=== PATIENT | female | born 1990 | race Caucasian/White ===

== ENCOUNTER → 2021-11-01 12:38 | Outpatient (CLI) | payer BC, SELFPAY ==
--- NOTE | ~2021-11-01 | US_ITS ---
EXAMINATION: US OB transvaginal DATE: 11/01/2021 13:10 INDICATION: Uncertain dates of TECHNIQUE: Real-time pelvic ultrasound utilizing a transvaginal probe was performed. The interpreting radiologist was not present for the study. COMPARISON: None. FINDINGS: The uterus measures 8.3 x 5.6 x 5.9 cm. There is an intrauterine gestational sac. A yolk sac and fet al pole are identified. The crown rump length measures 1.3 cm, which correlates with an estimated ges tational age of 7 weeks and 3 days. heart motion is identified measuring 161 beats per minute ( bpm) by M-mode Doppler. The right ovary measures 2.3 x 2.5 x 3.7 cm. There are a few anechoic cysts in the right ovary, the l argest measuring 2.3 cm. The left ovary measures 2.5 x 2.1 x 1.8 cm. There is no free fluid in the pe lvis. IMPRESSION: 1. Single living fetus with heart of 161 bpm. 2. Gestational age by ultrasound of 7 weeks 3 day(s) +/- 5 day(s) with ultrasound estimated date of delivery (JOSE) of 06/17/2022. Reviewed, dictated and finalized at location A. [employer] REPRESENTATIVE IMPRESSION: 1. Single living fetus with heart of 161 bpm. 2. Gestational age by ultrasound of 7 weeks 3 day(s) +/- 5 day(s) with ultraso und estimated date of delivery (JOSE) of 06/17/2022.
== END ==
PROVIDERS: Visit Provider Obstetrics & Gynecology Gynecology
DX: Z36.9 Encounter for antenatal screening, unspecified (principal); Z3A.01 Less than 8 weeks gestation of pregnancy
CPT/HCPCS: 76817

== ENCOUNTER → 2022-01-27 15:10 | Outpatient (CLI) | payer BC, SELFPAY ==
--- NOTE | ~2022-01-27 | US_ITS ---
EXAMINATION: US OB /maternal detail DATE: 01/27/2022 16:10 INDICATION: Encounter for screening. TECHNIQUE: Real-time ultrasound of the pelvis was performed. COMPARISON: Ultrasound 11/01/2021 FINDINGS: There is a single living fetus in breech presentation. The placenta is anterior, 1.1 cm from the cer vix. heart rate is 132 beats per minute (bpm). The amniotic fluid volume is subjectively normal . The following biometric data were obtained: Biparietal diameter (BPD): 4.8 cm; head circumference (HC): 17.9 cm; abdominal circumference (AC): 15 .5 cm; femur length (FL): 3.2 cm. These measurements are concordant. Estimated weight is 344 g +/- 52 g, which correlates with the 71st percentile when 06/17/22 is u sed as estimated date of delivery. As single measurements, these parameters are each equal to the following estimated gestational ages w ith ranges of +/- 2 standard deviations: BPD: 20 weeks 3 days (18 weeks 5 days - 22 weeks 1 days). HC: 20 weeks 2 days (18 weeks 6 days - 21 weeks 6 days). AC: 20 weeks 5 days (18 weeks 5 days - 22 weeks 5 days). FL: 19 weeks 6 days (18 weeks 0 days - 21 weeks 4 days). estimated gestational age based solely on measurements from this exam is 20 weeks 2 days +/- 1 weeks 3 days. The cerebral ventricles, cerebellum, cisterna magna, nuchal fold, lip, and visualized portions of the spine are normal. The heart is normal. The diaphragm, stomach, kidneys, and bladder are normal. Ther e are two umbilical arteries to yield a 3-vessel cord. The cord insertion is normal. IMPRESSION: 1. Single living fetus in breech presentation. 2. Estimated weight is 344 g +/- 52 g, which correlates with the 71st percentile when 06/17/22 is used as estimated date of delivery. This date was set by ultrasound on 11/01/2021. 3. Normal anatomic survey. 4. Low lying placenta. Reviewed, dictated and finalized at location A. IMPRESSION: 1. Single living fetus in breech presentation. 2. Estimated weight is 344 g +/- 52 g, which correlates with the 71st rcentile when 06/17/22 is used as estimated date of delivery. This date was set by ultrasound on 11/01/2021. 3. Normal anatomic survey. 4. Low lying placenta.
== END ==
PROVIDERS: PCP Obstetrics & Gynecology Gynecology; Visit Provider Obstetrics & Gynecology Gynecology
DX: Z34.92 Encounter for supervision of normal pregnancy, unspecified, second trimester (principal); Z3A.20 20 weeks gestation of pregnancy
CPT/HCPCS: 76805

== ENCOUNTER → 2022-02-28 12:52 | Outpatient (CLI) | payer BC, SELFPAY ==
--- NOTE | ~2022-02-28 | US_ITS ---
EXAMINATION: US OB limited DATE: 02/28/2022 13:08 INDICATION: Low-lying placenta TECHNIQUE: Real-time ultrasound of the pelvis was performed. The interpreting radiologist was not pre sent for the study. COMPARISON: 01/27/2022 FINDINGS: There is a single living fetus in vertex presentation. The placenta is anterior. The caudal margin i s approximately 3-4 cm from the region of the internal cervical os which is obscured by refraction ar tifact associated with the vertex of the skull. heart rate is 130 beats per minute (bpm). The amniotic fluid volume is subjectively normal. IMPRESSION: 1. Single living fetus in vertex presentation with heart rate of 130 bpm. 2. Anterior placenta with caudal margin approximately 3-4 cm from the expected region of the internal cervical os which is not clearly visualized due to transabdominal imaging and vertex position of the skull. Could consider transvaginal imaging for more definitive determination as clinically ind icated. Reviewed, dictated and finalized at location A. IMPRESSION: 1. Single living fetus in vertex presentation with heart rate of 130 bpm . 2. Anterior placenta with caudal margin approximately 3-4 cm from the expected region of the internal cervical os which is not clearly visualized due to trans abdominal imaging and vertex position of the skull. Could consider transv aginal imaging for more definitive determination as clinically indicated.
== END ==
PROVIDERS: PCP Obstetrics & Gynecology Gynecology; Visit Provider Obstetrics & Gynecology Gynecology
DX: O44.42 Low lying placenta NOS or without hemorrhage, second trimester (principal); Z3A.00 Weeks of gestation of pregnancy not specified
CPT/HCPCS: 76815

== ENCOUNTER → 2022-03-15 12:41 | Outpatient (CLI) | payer BC, SELFPAY ==
--- NOTE | ~2022-03-15 | US_ITS ---
EXAMINATION: US OB transvaginal DATE: 03/15/2022 13:05 INDICATION: Low-lying placenta, second trimester TECHNIQUE: Real-time pelvic transvaginal ultrasound was performed. COMPARISON: 02/28/2022 FINDINGS: There is a single fetus in vertex presentation. The placenta is anterior and 4.5 cm from th e internal cervical os. cardiac motion is not assessed due to transvaginal only examination. IMPRESSION: 1. Anterior placenta approximately 4.5 cm from the internal cervical os. Reviewed, dictated and finalized at location A.
== END ==
PROVIDERS: PCP Obstetrics & Gynecology Gynecology; Visit Provider Obstetrics & Gynecology Gynecology
DX: O44.40 Low lying placenta NOS or without hemorrhage, unspecified trimester (principal); Z3A.00 Weeks of gestation of pregnancy not specified
CPT/HCPCS: 76817

== ENCOUNTER → 2022-05-23 14:45 | Outpatient (CLI) | payer BC, SELFPAY ==
--- NOTE | ~2022-05-23 | US_ITS ---
EXAMINATION: US OB follow up DATE: 05/23/2022 15:10 INDICATION: Size less than expected for estimated gestational age. Assess growth. TECHNIQUE: Real-time ultrasound of the pelvis was performed. The interpreting radiologist was not pre sent for the study. COMPARISON: 03/15/2022 FINDINGS: There is a single living fetus in vertex presentation. The placenta is anterior fundal and not low-l yara. heart rate is 136 beats per minute (bpm). The amniotic fluid index is 9.6 cm, which is n ormal (5th%-95%: 7.7-24.9 cm at T6 weeks estimated gestational age). The following biometric data were obtained: BPD: 9.1 cm -> 36 weeks 6 days Head circumference: 3.23 cm -> 36 weeks 4 days Abdominal circumference: 32.0 cm -> 36 weeks 0 days Femur length: 6.9 cm -> 35 weeks 2 days These measurements are concordant. Head circumference to abdominal circumference ratio: 1.01 (normal range 0.92-1.08). Estimated weight: 2802 g (+/-) 420 g or 6 lbs. 3 oz. (+/-) 15 oz. IMPRESSION: 1. Single living fetus in vertex presentation with heart rate of 136 bpm. 2. Normal amniotic fluid index of 9.6 cm. 3. Estimated weight is 39th percentile by Hadlock criteria when 06/17/2022 is used as the estima alysa date of delivery (JOSE). On study performed 01/27/2022, the estimated weight was 71st percent ile utilizing the same JOSE. Please correlate with clinical information or earlier ultrasounds for mos t accurate JOSE. Reviewed, dictated and finalized at location A. IMPRESSION: 1. Single living fetus in vertex presentation with heart rate of 136 bpm. 2. Normal amniotic fluid index of 9.6 cm. 3. Estimated weight is 39th percentile by Hadlock criteria when 06/17/2022 is used as the estimated date of delivery (JOSE). On study performed 01/27/2022, the estimated weight was 71st percentile utilizing the same JOSE. Please correlate with clinical information or earlier ultrasounds for most accurate ED D.
== END ==
PROVIDERS: PCP Obstetrics & Gynecology Gynecology; Visit Provider Advanced Practice Midwife
DX: O36.5930 Maternal care for other known or suspected poor fetal growth, third trimester, not applicable or unspecified (principal); Z3A.00 Weeks of gestation of pregnancy not specified
CPT/HCPCS: 76816

== ENCOUNTER 2022-05-29 13:42 | Outpatient (RCR) | payer BC, SELFPAY ==
[2022-04-14 12:28] VITALS: BP 108/63; PULSE 95
[2022-05-29 14:15] VITALS: BP 113/72; PULSE 91
== END 2022-06-14 10:15 | disposition home or self-care (01) ==
LOC: ANHOBOP 13:42
PROVIDERS: Visit Provider Obstetrics & Gynecology Gynecology
DX: O36.8130 Decreased fetal movements, third trimester, not applicable or unspecified (principal); Z3A.30 30 weeks gestation of pregnancy
CPT/HCPCS: 59025

== ENCOUNTER 2022-06-05 08:09 | Inpatient (IN) | payer BC, SELFPAY ==
[2022-06-05] VITALS (150 sets, daily range): BP systolic 98–144; BP diastolic 49–102; PULSE 75–142; TEMP 36.2–36.5; O2SAT 95–100; BMI 27.6
[2022-06-05] MEDS: fentaNYL CITRATE INJ (*CRX) 100 MCG/2 ML VIAL 50 MCG IV PUSH ×2 (13:04→14:49)
--- NOTE | 2022-06-05 14:48 | WPDOBADMIT ---
Obstetrics - Admit Note Admission Note: record reviewed. No pertinent additions to the history and/or any subsequent changes in the physical findings that are not consistent with the expected course of the were found. Additions to the history and/or subsequent changes in the physical findings follow. Here in labor. Initially, 3 cm. Now 580/-1 anterior. AROM with clear fluid. FHTs category I. Expectant management. Plan delivery with Chana Tan. Patient report given.
[2022-06-05] MEDS: LACTATED RINGERS 1,000 ML 125 ML IV CONT ×3 (15:00→23:17)
[2022-06-05] MEDS: CLINDAMYCIN 900 MG/D5W 50 ML 900 MG/50 ML PIGGYBACK 50 MG IVPB ×2 (15:00→23:06)
[2022-06-05 15:01] LABS: Basophils Absolute Auto 0.1 K/mm3 (0.0-0.1); Basophils Percent Auto 0.5 % (0.2-1.2); Eosinophils Percent Auto 0.4 % (0-4.4); Hematocrit 36.8 % (37.0-47.0); Hemoglobin 11.9 g/dL (12.0-15.0); Immature Granulocyte Absolute 0.15 K/mm3 (0.00-0.031); Immature Granulocyte Percent A 1.5 % (0-0.5); Lymphocytes Absolute Auto 1.16 K/mm3 (0.9-3.2); Lymphocytes Percent Auto 11.2 % (18.3-44.2); Mean Corpuscular HGB Conc 32.3 g/dl (32-36); Mean Corpuscular Hemoglobin 29.8 pg (26-34); Mean Corpuscular Volume 92.2 fl (80-100); Mean Platelet Volume 10.3 fl (7.4-10.4); Monocytes Absolute Auto 0.7 K/mm3 (0.1-0.6); Monocytes Percent Auto 7.2 % (2.6-8.5); Neutrophils Absolute Auto 8.2 K/mm3 (1.3-6.7); Neutrophils Percent Auto 79.2 % (45.5-73.1); Platelet Count Result 312 k/mm3 (150-375); Red Blood Count 3.99 M/mm3 (4.2-5.4); Red Cell Distribution Width 17.7 % (11.5-14.5); White Blood Count 10.3 K/mm3 (4.5-10.0)
--- NOTE | 2022-06-05 15:03 | LDADM ---
This patient, Sara Gutierrez, was admitted to Labor/Delivery/Recovery 105 on 06/05/22 at 08:09. Plans for labor, pain management and were discussed with patient. Patient/family oriented to hospital policies and general routines including ID bracelet, bed and alarms, visiting hours, pain management, procedures, bathroom and other care routines, personal items, smoking policy, room service/diet and guest tray routines, security routines, and visiting hours. Patient/Family are encouraged to report perceived risks to care and to ask questions if they do not understand what they are told or what they should do. See OBIX for further documentation.
--- NOTE | 2022-06-05 15:16 | WPDANESEPP ---
Anes - Eval Pre Procedure Procedure: labor epidural Date/Time: 06/05/22 15:16 Preop Diagnosis: labor pain Pre Op Diagnosis: Contractions Patient Data Age: 31 Gender: F Height: 1.68 m Weight: 77.5 kg Last Vital Signs Pulse 80 06/05/22 15:01 BP 144/90 H 06/05/22 15:01 O2 Del Method Room Air 06/05/22 15:00 Allergies Allergy/AdvReac Type Severity Reaction Status Date / Time amoxicillin Allergy Unknown Vomiting Verified 05/19/22 15:19 aripiprazole AdvReac Fatigued Verified 05/19/22 15:19 Home Medications Medication Instructions Recorded Confirmed Type fluticasone propionate 50 2 spray intranasal DAILY #9.9 mL 07/24/19 08/29/21 Rx mcg/actuation nasal spray,suspension (Flonase Allergy Relief) fluoxetine 20 mg capsule 20 mg PO TID #90 caps 11/24/19 08/29/21 Rx buspirone 5 mg tablet 5 mg PO TID 06/22/20 08/29/21 History cholecalciferol (vitamin D3) 1,250 1,250 mcg PO WEEKLY 06/22/20 08/29/21 History mcg (50,000 unit) capsule (D3-50 Cholecalciferol) ferrous gluconate 270 mg (27 mg 270 mg PO DAILY 06/22/20 08/29/21 History iron) tablet (Fergon) ondansetron 4 mg disintegrating 4 mg PO Q8H PRN nausea and 08/26/21 08/26/21 Rx tablet vomiting #30 tabs Laboratory Tests 06/05/22 06/05/22 14:57 14:57 WBC 10.3 K/mm3 H K/mm3 (4.5-10.0) RBC 3.99 M/mm3 L M/mm3 (4.2-5.4) Hgb 11.9 g/dL L g/dL (12.0-15.0) Hct 36.8 % L % (37.0-47.0) MCV 92.2 fl fl (80-100) MCH 29.8 pg pg (26-34) MCHC 32.3 g/dl g/dl (32-36) RDW 17.7 % H % (11.5-14.5) Plt Count 312 k/mm3 k/mm3 (150-375) MPV 10.3 fl fl (7.4-10.4) Immature Gran % (Auto) 1.5 % H % (0-0.5) Neut % (Auto) 79.2 % H % (45.5-73.1) Lymph % (Auto) 11.2 % L % (18.3-44.2) [place] % (Auto) 7.2 % % (2.6-8.5) Eos % (Auto) 0.4 % % (0-4.4) Baso % (Auto) 0.5 % % (0.2-1.2) Lymph # (Auto) 1.16 K/mm3 K/mm3 (0.9-3.2) [place] # (Auto) 0.7 K/mm3 H K/mm3 (0.1-0.6) Eos # (Auto) 0.0 K/mm3 K/mm3 (0-0.3) Baso # (Auto) 0.1 K/mm3 K/mm3 (0.0-0.1) Abs Immat Gran (auto) 0.15 K/mm3 H K/mm3 (0.00-0.031) Absolute Neuts (auto) 8.2 K/mm3 H K/mm3 (1.3-6.7) Absolute Nucleated RBC 0.0 K/mm3 K/mm3 (0.0-0.012) Nucleated RBC % 0.0 % % (0.0-0.2) RPR Pending Patient hx anesthesia problems: none Family hx anesthesia problems: none Results Review: All pre-operative results and documents have been reviewed as part of the pre-operative evaluation. [facility] Past Medical History Medical History Anxiety Depression Insomnia Surgical History Surgical History No significant past surgical history Family History Family History Father Family history of thyroid disease Carcinoma of colon Mother Family history of thyroid disease Depression Family history of bipolar disorder Sibling Family history of thyroid disease Depression Grandparent Carcinoma of colon Family history of lung cancer Family history of malignant neoplasm of esophagus Other Family history of mental disorder Family history of suicide Social History Social History Smoking status: Never smoker Alcohol intake: current Substance use: never Spiritual care concerns: No Exam Day of Procedure 06/05/22 15:16
[2022-06-05] MEDS: ONDANSETRON INJ 4 MG/2 ML VIAL IV PUSH ×2 (17:02→23:17)
--- NOTE | 2022-06-05 17:26 | PM.OBPNLAB ---
Pain Control Date/time seen: 06/05/22 17:26 Pain control: epidural Pelvic Exam Dilation (cm): 5 Effacement (%): 90 station: -1 Amniotic membrane status: Ruptured Contractions Monitor mode: External Contraction frequency: 4 Contraction pattern: Regular Contraction phase: Contraction Contraction intensity: Moderate Status status: Category l Assessment and Plan Plan: begin patient augmentation Comments: Discussed plan of care with Sara and her partner. SVE unchanged. Ctx q 4 min. Recommended IUPC placement and augmentation of labor if MVUs inadequate. Anticipate vaginal .
[2022-06-05] MEDS: OXYTOCIN 30 UNITS/NS 500 ML 30 UNITS/500 ML BAG IV CONT (18:51)
[2022-06-06] VITALS (126 sets, daily range): BP systolic 110–132; BP diastolic 68–103; PULSE 25–132; RESP 16–18; TEMP 36.2–36.9; O2SAT 79–100
[2022-06-06] MEDS: ACETAMINOPHEN 325 MG TABLET 650 MG PO ×4 (00:09→22:47)
[2022-06-06] MEDS: LACTATED RINGERS 1,000 ML 125 ML IV CONT (03:23)
[2022-06-06] MEDS: ONDANSETRON INJ 4 MG/2 ML VIAL IV PUSH (04:56)
--- NOTE | 2022-06-06 07:14 | P.PCNOB_ITS ---
OB - Delivery Note Procedure Delivery date: 06/06/22 Events: Positive Group B Strep (GBS) Induction method: None Delivery augmentation: Rupture of Membranes and Pitocin Delivery monitor: External FHT, External Uterine and Internal Uterine Route of delivery: Episiotomy description: None Laceration Description: Vaginal (1st degree) and Superficial Delivery repair: vicryl Specimen: Yes Quantitative Blood Loss (ml): 150 Anesthesia type: Epidural Disposition: Floor Narrative: Called for delivery at . CNM arrived and pt pushing with some contractions. Intermittent variable decerlerations. Pt repositioned frequently and pushed with contractions. She made fair progress to and then pushed very well. There was a compound presentation with the right arm and hand. Then had good restitution and the remainder of the body was delivered easily. The infant was placed on the maternal abdomen and dried and simulated. After one minute of life, the cord was doubly clamped and cut. [place] Baby Date of : 06/06/22 Time of : 06:50 Weeks of gestation at delivery: 38 gender: Female Weight (pounds): 6 Weight (ounces): 8 presentation: compound (JACE, compound presentation of the right arm, hand) position: Left Occiput Anterior Placenta delivery description: Spontaneous Cord Vessel Description: 3 Vessels score one minute: 6 score five minutes: 8
--- NOTE | 2022-06-06 07:14 | PM.OBDSVD ---
DS: Admitting Diagnosis Discharge Date 06/08/22 Admitting Diagnosis IUP at 38 2/7 weeks Spontaneous Labor GBS+ [place]im[place] DS: Discharge Diagnosis Discharge Diagnosis (1) (normal spontaneous vaginal delivery): Code(s): O80 - Encounter for full-term uncomplicated delivery Status: Acute OB - DS: Summary Hospital Course Hospital Course: uncomplicated OB Procedures : NST and Ultrasound OB Procedures Intrapartum: Spontaneous Vag Delivery OB Procedures: : None Peripartum Data Delivery Method: Natural Vaginal Laceration Description: Vaginal - 1st Degree and Superficial Episiotomy description: None complications: none Status at Discharge Overall status at discharge: patient is progressing back to baseline Time Spent with Patient Time attestation: Total time spent providing and/or coordinating discharge services: DS: Data Data Completed and Pending Labs on day of discharge: Labs from last 24 hours 06/05/22 06/05/22 06/05/22 14:57 14:57 14:57 WBC 10.3 H RBC 3.99 L Hgb 11.9 L Hct 36.8 L MCV 92.2 MCH 29.8 MCHC 32.3 RDW 17.7 H Plt Count 312 MPV 10.3 Immature Gran % (Auto) 1.5 H Neut % (Auto) 79.2 H Lymph % (Auto) 11.2 L [place] % (Auto) 7.2 Eos % (Auto) 0.4 Baso % (Auto) 0.5 Lymph # (Auto) 1.16 [place] # (Auto) 0.7 H Eos # (Auto) 0.0 Baso # (Auto) 0.1 Abs Immat Gran (auto) 0.15 H Absolute Neuts (auto) 8.2 H Absolute Nucleated RBC 0.0 Nucleated RBC % 0.0 RPR Pending Blood Type A Positive Antibody Screen Negative Discharge Plan Discharge Attending physician on discharge: Maddy Blanton Consulting providers: Chana Tan ; Felisa Sanz ; Christina Ramsay Discharging Clinician: Maddy Blanton Anticipated Discharge Date/Time: 06/08/22 09:14 Patient Disposition: Home, Self-Care Activity: may shower Diet: as tolerated and regular Discharge Instructions: Education: Mom and Baby Guide Given to: Mother Follow-Up: Call your delivering provider's office for an appointment to be seen in: 6 Weeks Mom and baby should come to the [facility] for the follow-up appointment. Appointment Date/Time: June 10, 2022 at 10:00 am What to expect at your follow-up visit: Blood Pressure Check Physical Assessment Call [phone] if you are unable to keep your appointment time. BREAST CARE: * Wear a snug supportive bra. * For engorgement discomfort: Breast Feeding: * Apply warm moist washcloths * Express milk as needed to relieve engorgement * Wear loose clothing Bottle Feeding: * May apply ice packs * For sore nipples: * Identify correct latch-on * Apply warm moist washcloths before and after nursing * Air dry nipples after nursing * May apply Lansinoh cream to nipples PERINEAL CARE: * Until bleeding stops, use your dawit bottle after urinating * Change your pad frequently throughout the day * You may take sitz baths several times a day (fill your bathtub with warm water and soak for 20 minutes.) Do NOT bathe in the water * No tub baths until seen by your physician - You may shower ACTIVITY: * Rest as much as possible. * Do not exercise or lift anything heavier than your baby (such as laundry or other children.) * Avoid stairs or driving as much as possible. * Do not put anything into the vagina. No douching, tampons, or sexual activity until seen by physician. NOTIFY PHYSICIAN IF YOU HAVE ANY QUESTIONS OR IF ANY OF THE FOLLOWING SYMPTOMS OCCUR: * If your episiotomy or incision becomes red, swollen, or more painful than what you have experienced in the hospital. * If your vaginal bleeding becomes foul smelling. * If your vaginal bleeding becomes more heavy than a period or if your bleeding changes from pink to bright red. However, you may pass an occas
[2022-06-06] MEDS: OXYTOCIN 30 UNITS/NS 500 ML 30 UNITS/500 ML BAG 125 UNITS IV CONT (07:20)
[2022-06-06] MEDS: WITCH HAZEL 40 PADS 1 PAD TOPICAL (09:24)
[2022-06-06] MEDS: BENZOCAINE 20% AER SPR (*SP) 56 GM CAN 1 SPRAY TOPICAL (09:24)
[2022-06-06] MEDS: IBUPROFEN 600 MG TABLET PO ×3 (10:20→22:46)
--- NOTE | 2022-06-06 10:27 | PC.NURSE ---
Patient transferred to post room #283 via wheelchair. Support person present. Oriented to unit, room, information board, rooming in, admission packet and security measures. Patient verbalizes understanding.
[2022-06-06] MEDS: LEVOTHYROXINE SODIUM 25 MCG TABLET PO (10:36)
[2022-06-06] MEDS: FLUoxetine HCL 20 MG CAPSULE 60 MG PO (10:37)
[2022-06-06] MEDS: busPIRone HCL 10 MG TABLET PO (10:37)
[2022-06-06 10:39] LABS: Rapid Plasma Reagin Non-Reactive (NonReactive)
--- NOTE | 2022-06-06 15:54 | PC.NURSE ---
1921-0822 Introductions were made, then consulted with patient to assess needs related to . Mother led the conversation with her?plans to feed?her infant and the?experience so far while a visitor holds . Resources provided for inpatient and outpatient services using a resource guide and mom/baby guide. Mother voiced understanding of information and requested assistance. Mother works well with her infant with encouragement and education. Encouraged understanding of the benefits of skin to skin (unwrapping and placing vertically on her chest), responsive feeding and how to watch for early feeding signs, frequency of feeding on demand about every 8-12 times in 24 hours (every 2-3 hours), milk production, using clean hands learning hand expression and finger feeding her the first milk, signs of adequate intake/output and how to record on the feeding sheet. Infant is sleepy and reluctant to breastfeed at this time. 1.5 mls was syringe fed to while sucking on father of baby's finger. Small amounts of colostrum syringe fed to to reward infant for sucking efforts. Resources used to facilitate learning were used with the tool and mom and baby guide. Mother voiced understanding of responsive feedings, stimulating with skin to skin, hand expressed colostrum, massage touch, talking to infant to encourage if it has been 2 -3 hours since the start of the last , to call if infant does not latch or there is discomfort with . Infant will be held by grandma while the parents eat lunch. Skin to skin encouraged, intake/output reviewed using the pie demonstration, parents questions answered and voiced calling for assistance if infant doesn't wake to eat every 2-3 hours from the start of a feeding to the start of a feeding, if there's discomfort with , or if they have concerns, questions, or need assistance with latching . Reported to the primary RN.
[2022-06-06] MEDS: diphenhydrAMINE HCl CAP 25 MG CAPSULE (23:00)
[2022-06-07 04:15] VITALS: BP 109/71; PULSE 86; RESP 16; TEMP 36
[2022-06-07] MEDS: IBUPROFEN 600 MG TABLET PO ×2 (04:23→15:55)
[2022-06-07] MEDS: ACETAMINOPHEN 325 MG TABLET 650 MG PO (04:24)
[2022-06-07 05:11] LABS: Hematocrit 32.4 % (37.0-47.0); Hemoglobin 10.2 g/dL (12.0-15.0)
--- NOTE | 2022-06-07 06:48 | P.PNOB_ITS ---
OB - PN: Subj Subjective Date/time seen: 06/07/22 06:30 Patient comments: other (vaginal pain) [place] baby status: doing well and other (attempting to breastfeed, supplementing with formula. ) [place] feeding status: breast and bottle feeding OB - PN: Obj Data Labs CBC & Chem 7: 06/07/22 04:20 Labs: Laboratory Results - last 24 hr 06/05/22 06/07/22 14:57 04:20 Hgb 10.2 L Hct 32.4 L RPR Non-reactive OB - PN A/P Plan day: 1 Plan: routine care Time Spent With Patient Time: Total time spent is greater than 50% in coordination of care (as documented) at patient's floor/unit and/or counseling patient: Review of Systems Review of Systems: All systems reviewed & are unremarkable except as noted in HPI and below Exam Narrative: Alert and oriented. Mood is pleasant and cooperative. Urinating without difficulty. Denies passing any large clots. Perineum with minimal edema. Const: General: no acute distress Orientation/consciousness: patient oriented x3 Limitations: no limitations Resp: Effort & Inspection: normal respiratory effort Auscultation: clear to auscultation bilaterally Cardio: Rate: regular rate GI: Inspection: normal to inspection Neuro: General: patient oriented x3 Extrem: General: normal to inspection Psych: Appearance: grossly normal Mental Status: mental status grossly normal Affect: normal affect Thought process: Normal thought process present
[2022-06-07 07:57] VITALS: BP 122/86; PULSE 102; RESP 16; TEMP 37.1; O2SAT 98
[2022-06-07] MEDS: HYDROcodone/acetaminophen (*CRX) 5-325 MG TABLET 1 TAB PO ×3 (09:03→20:54)
[2022-06-07] MEDS: FLUoxetine HCL 20 MG CAPSULE 60 MG PO (09:04)
[2022-06-07] MEDS: busPIRone HCL 10 MG TABLET PO (09:04)
[2022-06-07] MEDS: DOCUSATE SODIUM 100 MG CAPSULE PO ×2 (09:04→15:55)
[2022-06-07] MEDS: LEVOTHYROXINE SODIUM 25 MCG TABLET PO (09:04)
--- NOTE | 2022-06-07 09:08 | WPDANLDPN2 ---
Anes-Prog Note L&D Date/Time: 06/07/22 09:08 Comfortable throughout: labor Neuraxial method: epidural Epidural/Spinal procedure site: clean & non-tender Neuro status: Neuro function grossly intact. Cardiovascular status: normal Respiratory status: normal Airway patency: baseline Mental status: baseline Post-Op hydration status: normal Vital Signs: Last Vital Signs Temp 98.7 F 06/07/22 07:57 Pulse 102 H 06/07/22 07:57 Resp 16 06/07/22 07:57 BP 122/86 06/07/22 07:57 Pulse Ox 98 06/07/22 07:57 O2 Del Method Room Air 06/05/22 15:00 Pain score (VAS): 4 I/O: Intake & Output 06/06/22 06/07/22 06/07/22 23:59 07:59 15:59 Intake Total 240 Balance 240 Post-procedural complaints: none Patient feedback: Patient satisfied with anesthetic care. pt verbalized good relief throughout laboring process. states experienced intense pain once pushing. verbalized some relief after RN used bolus button but still had intense pain with delivery.
--- NOTE | 2022-06-07 16:08 | PC.NURSE ---
[id number] RN entered the room and mother had just finished bottle feeding her for a second time this morning. Father of baby states that he believes RN has equipped them with good tips and techniques to encourage and they have attempted them all without calling for assistance, then when they could not get to wake to feed they fed the baby 1 oz of formula that had been given to them prior to this dayshift by primary RN. Reviewed milk production, pumping or 8-12 times in 24 hours 1-2 times at night, signs of adequate intake/output (reviewed pie demonstration) and how to record on the feeding sheet. Parents voiced understanding of responsive feedings, stimulating with skin to skin, hand expressed colostrum, massage touch, talking to to encourage if it has been 2 -3 hours since the start of the last , to call if infant does not latch, difficulty waking infant to breastfeed or there is discomfort with as a visitor came in the room. Reported to the primary RN.
[2022-06-07 20:15] VITALS: BP 121/88; PULSE 88; RESP 18; TEMP 36.6; O2SAT 99
[2022-06-07] MEDS: MULTIVIT/MIN/PREN/FOL AC/IRON TABLET 1 TAB PO (20:29)
[2022-06-08] MEDS: IBUPROFEN 600 MG TABLET PO (00:51)
[2022-06-08] MEDS: HYDROcodone/acetaminophen (*CRX) 5-325 MG TABLET 1 TAB PO ×3 (00:52→10:01)
--- NOTE | 2022-06-08 07:31 | P.PNOB_ITS ---
OB - PN: Subj Subjective Date/time seen: 06/08/22 07:31 Patient comments: no complaints and pain well controlled baby status: doing well [place] feeding status: breast and bottle feeding OB - PN: Obj Data Labs CBC & Chem 7: 06/07/22 04:20 OB - PN A/P Plan day: 2 Plan: routine care, discharge home, follow up 6 weeks and other (plans micronor) Time Spent With Patient Time: Total time spent is greater than 50% in coordination of care (as documented) at patient's floor/unit and/or counseling patient: Exam : Bimanual exam- vagina & uterus: other (Uterus firm, nt @U)
[2022-06-08 08:35] VITALS: BP 129/90; PULSE 86; RESP 18; TEMP 36.3; O2SAT 98
[2022-06-08] MEDS: DOCUSATE SODIUM 100 MG CAPSULE PO (10:00)
[2022-06-08] MEDS: busPIRone HCL 10 MG TABLET PO (10:00)
[2022-06-08] MEDS: LEVOTHYROXINE SODIUM 25 MCG TABLET PO (10:00)
[2022-06-08] MEDS: FLUoxetine HCL 20 MG CAPSULE 60 MG PO (10:00)
[2022-06-10 10:46] VITALS: BP 133/89; PULSE 91; RESP 20; TEMP 36.9; O2SAT 99
== END 2022-06-08 13:20 | disposition home or self-care (01) | DRG 807 ==
LOC: ANHLDR 06-06 09:15 → ANHOB2 06-06 09:52
PROVIDERS: Advanced Practice Midwife; Admitting Provider Obstetrics & Gynecology Gynecology; PCP Obstetrics & Gynecology Gynecology; Visit Provider Obstetrics & Gynecology Gynecology
DX: O99.824 Streptococcus B carrier state complicating childbirth (principal); Z37.0 Single live birth; O70.0 First degree perineal laceration during delivery; O76 Abnormality in fetal heart rate and rhythm complicating labor and delivery; O32.6XX0 Maternal care for compound presentation, not applicable or unspecified; O77.0 Labor and delivery complicated by meconium in amniotic fluid; Z3A.38 38 weeks gestation of pregnancy; O99.344 Other mental disorders complicating childbirth; F32.A Depression, unspecified; O99.284 Endocrine, nutritional and metabolic diseases complicating childbirth; E03.9 Hypothyroidism, unspecified
CPT/HCPCS: 36415; 85014; 85018; 85025; 86592; 86850; 86900; 86901; A9270; J2405; J2590; J2795; J3010; J7120

== ENCOUNTER 2025-01-16 15:59 | Emergency (ER) | payer OTHER, SELFPAY ==
[2025-01-16 16:12] VITALS: BP 123/79; PULSE 84; RESP 16; TEMP 36.8; O2SAT 98
--- NOTE | 2025-01-16 16:17 | ECG_ITS ---
Test Date: 2025-01-16 18:28:29 Measurements Intervals [place] Rate: 68 P: 21 [place]: 112 QRS: 56 QRSD: 82 T: 42 QT: 398 QTc: 424 Interpretive Statements SINUS RHYTHM WITH SHORT [place] INTERVAL No previous ECG available for comparison Electronically Signed On 01-16-2025 19:18:11 CDT by Danni Ardon
--- NOTE | 2025-01-16 16:18 | ED_ITS ---
HPI - Psych General Chief Complaint: Psychiatric Symptoms <Lissett Quintanilla, OCEAN IMPORT REPRESENTATIVE - Last Filed: 01/16/25 16:24> Stated Complaint: Suicidal thoughts <Lissett Quintanilla OCEAN IMPORT REPRESENTATIVE - Last Filed: 01/16/25 16:24> Time Seen by Provider: 01/16/25 16:15 <Lissett Quintanilla OCEAN IMPORT REPRESENTATIVE - Last Filed: 01/16/25 16:24> Focused HPI: Patient is a 34-year-old female who presents to the ER with feeling low for a couple of days. She endorses suicidal ideation but does not currently have a plan. Patient has a medical history of bipolar, and self-injurious behavior. She reports she has been hospitalized for mental health issues in the past at [facility], [facility], and [place]. Patient reports she recently stopped Abilify and recently started a new replacement medication. She reports she restarted psychotherapy this week also. Patient denies any physical pain, recent fevers, urinary symptoms, shortness of breath. GENERAL: Well-appearing, well-nourished, and in no acute distress. HEAD: Normocephalic, atraumatic. CHEST: Clear to auscultation. ?No respiratory distress. HEART: Regular rate and rhythm.? NEURO: ?Alert and oriented x3. Patient screened in triage and initial orders placed.? ?Additional care and disposition to be based upon?diagnostic testing and treatment. <Lissett Quintanilla, OCEAN IMPORT REPRESENTATIVE - Last Filed: 01/16/25 16:24> History of Present Illness HPI Narrative: Agree with the above triage note. 34-year-old female with reported history of bipolar and depression presents to the emergency department for suicidal thoughts for the past week. Patient presents with daughter and fiance at bedside. She states she has had a ?low mood? throughout this week and has had suicidal thoughts. She cannot identify any triggers. She does report associated anxiety. She denies a suicidal plan, HI, auditory or visual hallucinations. Patient does note she started counseling again 2 days ago and underwent some medication changes. She discontinued her Abilify yesterday and took her 1st dose of Caplyta today. No other medication changes. She is established with a psychiatrist. Most recent hospitalization was March 2023 at [facility] for a suicide attempt after taking a bottle of anxiety medications. Patient lives at home by herself. She denies access to weapons or firearms per fiancee at bedside does state that he has a gun that is locked in a safe. < Miroslava Shepherd PA-C - Last Filed: 01/16/25 22:00> Related Data Home Medications: Home Medications ?Medication ?Instructions ?Recorded ?Confirmed ?Last Taken ?Type fluoxetine 20 mg capsule 40 mg PO DAILY 06/06/22 01/16/25 01/15/25 History hydroxyzine HCl 25 mg tablet 25 mg PO TID PRN anxiety 01/23/23 01/16/25 01/15/25 History buspirone 10 mg tablet 30 mg PO BID 01/16/25 01/16/25 01/15/25 History divalproex 500 mg tablet,delayed 1,000 mg PO HS 01/16/25 01/16/25 01/15/25 History release (Depakote) trazodone 150 mg tablet 150 mg PO HS PRN insomnia 01/16/25 01/16/25 01/15/25 History <Lissett Quintanilla APRN - Last Filed: 01/16/25 16:24> Allergies/Adverse Reactions: Allergies Allergy/AdvReac Type Severity Reaction Status Date / Time amoxicillin AdvReac Unknown Vomiting Verified 01/16/25 16:00 <Lissett Quintanilla APRN - Last Filed: 01/16/25 16:24> Review of Systems 2 Review of Systems: All systems reviewed & are unremarkable except as noted in HPI and below <Miroslava Shepherd PA-C - Last Filed: 01/16/25 22:00> [facility] Past Medical History Medical History: Medical History Hypothyroid Iron deficiency Insomnia Depression Anxiety <Lissett Quintanilla APRN - Last Filed: 01/16/25 16:24> Surgical History Surgical History: Surgical History No significant past surgical history <Lissett Quintanilla APRN - Last Filed: 01/16/25 16:24> Family History Family History: Family History Father Family history of thyroid disease Carcinoma of colon Mother Family history of thyroid disease Depression Family history of bipolar disorder Sibling Family history of thyroid disease Depression Grandparent Carcinoma of colon Family history of lung cancer Family history of malignant neoplasm of esophagus Other Family history of mental disorder Family history of suicide <Lissett Quintanilla, JANNA - Last Filed: 01/16/25 16:24> Social History Social History: Social History Smoking status: Never smoker Alcohol intake: current Substance use: never Substance use type: marijuana Lack of Transportation: No Lack of Food: Never True Current Housing: I Have Housing Concerned About Future Housing: No Difficulty Paying Gas/Electric Bills: No Difficulty Paying for Meds: No Currently Unemployed: No Education: Trade/Vocational Certificate Difficulty w/ Childcare or Family Care: No Living arrangements: with family Spiritual care concerns: No <Lissett Quintanilla, OCEAN IMPORT REPRESENTATIVE - Last Filed: 01/16/25 16:24> Exam 2 Narrative: GENERAL: Well-appearing, well-nourished, and in no acute distress. HEAD: Normocephalic, atraumatic. EYES: EOMI. ENT: Nares clear, no rhinorrhea or epistaxis. Mucous membranes moist. NECK: Supple. CHEST: Clear to auscultation. No respiratory distress. HEART: Regular rate and rhythm. No murmur heard. Normal peripheral pulses. EXTREMITIES: Normal range of motion. No edema. SKIN: Warm, dry, no rash. NEURO: No focal deficits. Alert and oriented x3 PSYCH: Flat affect. Admits to suicidal thoughts but denies plan. Denies HI. Not responding to internal stimuli. Otherwise pleasant and cooperative <Miroslava Shepherd PA-C - Last Filed: 01/16/25 22:00> Course Vital Signs Vital signs: Vital Signs Temperature 98.2 F 01/16/25 16:12 Pulse Rate 84 01/16/25 16:12 Respiratory Rate 16 01/16/25 16:12 Blood Pressure 123/79 01/16/25 16:12 Pulse Oximetry 98 01/16/25 16:12 Temperature 98.2 F 01/16/25 16:12 Pulse Rate 84 01/16/25 16:12 Respiratory Rate 16 01/16/25 16:12 Blood Pressure 123/79 01/16/25 16:12 Pulse Oximetry 98 01/16/25 16:12 <Lissett Quintanilla APRN - Last Filed: 01/16/25 16:24> Vital Signs Temperature 98.2 F 01/16/25 16:12 Pulse Rate 84 01/16/25 16:12 Respiratory Rate 16 01/16/25 16:12 Blood Pressure 123/79 01/16/25 16:12 Pulse Oximetry 98 01/16/25 16:12 Temperature 98.2 F 01/16/25 16:12 Pulse Rate 84 01/16/25 16:12 Respiratory Rate 16 01/16/25 16:12 Blood Pressure 123/79 01/16/25 16:12 Pulse Oximetry 98 01/16/25 16:12 <Miroslava Shepherd PA-C - Last Filed: 01/16/25 22:00> MDM - Psych MDM Narrative Medical decision making narrative: 34-year-old female with reported history of depression and bipolar disorder presents to the ED with family at bedside for suicidal thoughts and ?low mood? for the past week. Patient did recently stop her Abilify and start Caplyta per her psychiatrist today. Triage vitals are stable. Exam is notable for the above. CBC without leukocytosis or anemia. Chemistries are unremarkable. UA with 11- 20 wbc's 1+ leuk esterase. Patient is endorsing urinary frequency, will start her on Keflex for UTI. is negative. UDS positive for benzodiazepines and cannabis. Patient does not appear to be prescribed benzodiazepines. TSH is within normal limits. ETOH is less than 10. Patient medically cleared for crisis evaluation. Crisis evaluated patient and patient is deemed appropriate for safety plan and outpatient follow-up. Patient and family are agreeable with this and feels safe with this plan. The patient continues to deny SI with a plan, no HI. She is requesting something for anxiety, will provide hydroxyzine. Advised her to follow-up closely with her counselor and her psychiatrist. Discussed strict ED return precautions. She and her family at bedside are agreeable with the plan verbalized understanding. Discharged stable condition. <Miroslava Shepherd PA-C - Last Filed: 01/16/25 22:00> Lab Data Result diagrams: 01/16/25 17:26 01/16/25 17:26 <Lissett Quintanilla APRN - Last Filed: 01/16/25 16:24> Labs: Lab Results 01/16/25 01/16/25 01/16/25 Range/Units 17:26 17:27 18:50 WBC 7.3 (4.5-10.0) K/mm3 RBC 4.15 L (4.2-5.4) M/mm3 Hgb 13.0 (12.0-15.0) g/dL Hct 40.8 (37.0-47.0) % MCV 98.3 (80-100) fl MCH 31.3 (26-34) pg MCHC 31.9 L (32-36) g/dl RDW 14.0 (11.5-14.5) % Plt Count 337 (150-375) k/mm3 MPV 9.0 (7.4-10.4) fl Immature Gran % (Auto) 0.8 H (0-0.5) % Neut % (Auto) 58.2 (45.5-73.1) % Lymph % (Auto) 31.8 (18.3-44.2) % [place] % (Auto) 7.2 (2.6-8.5) % Eos % (Auto) 1.2 (0-4.4) % Baso % (Auto) 0.8 (0.2-1.2) % Lymph # (Auto) 2.33 (0.9-3.2) K/mm3 [place] # (Auto) 0.5 (0.1-0.6) K/mm3 Eos # (Auto) 0.1 (0-0.3) K/mm3 Baso # (Auto) 0.1 (0.0-0.1) K/mm3 Abs Immat Gran (auto) 0.06 H (0.00-0.031) K/mm3 Absolute Neuts (auto) 4.3 (1.3-6.7) K/mm3 Absolute Nucleated RBC 0.000 (0.0-0.012) K/mm3 Nucleated RBC % 0.0 (0.0-0.2) % Sodium 139 (137-145) mmol/L Potassium 4.2 (3.4-5.0) mmol/L Chloride 106 (98-107) mmol/L Carbon Dioxide 26 (22-30) mmol/L Anion Gap 7 (4-12) mmol/L BUN 6 L D (7-17) mg/dL Creatinine 0.66 L (0.7-1.0) mg/dL Estim Creat Clear Calc 117 ml/min Estimated GFR > 60 (59 - ) Glucose 84 (65-110) mg/dL Calcium 8.7 (8.4-10.2) mg/dL Total Bilirubin 0.2 (0.2-1.3) mg/dL AST 25 (14-36) U/L ALT 19 (6-35) U/L Alkaline Phosphatase 73 (38-126) U/L Total Protein 7.0 (6.3-8.2) g/dL Albumin 3.8 (3.5-5.1) g/dL TSH 2.590 (0.465-4.680) uIU/mL Urine Color Yellow (Yellow) Urine Appearance Cloudy H (Clear) Urine pH 7.0 (5.0-9.0) Ur Specific [place] 1.010 (1.001-1.035) Urine Protein Negative (Negative) mg/dL Urine Glucose (UA) Negative (Negative) mg/dL Urine Ketones Negative (Negative) mg/dL Ur Blood (Man) Negative (Negative) Urine Nitrate Negative (Negative) Urine Bilirubin Negative (Negative) Urine Urobilinogen 1.0 (<2.0) mg/dL Leukocyte Esterase Rfl 1+ H (Negative) JOHNNA/UL Urine RBC 0-2 (0-2) /hpf Urine WBC 11-20 H (0-3) /hpf Ur Squamous Epith Cells Moderate (Few) /hpf Urine Bacteria None seen /hpf Urine Casts 0-2 POC Urine HCG, Qual (Negative) Salicylates < 1.0 L (2-20) mg/dL Urine Opiates Screen Negative (Negative) Urine Methadone Screen Negative (Negative) Acetaminophen < 10 L (10-30) ug/mL Ur Barbiturates Screen Negative (Negative) Valproic Acid 57.4 (50-120) ug/mL Ur Phencyclidine Scrn Negative (Negative) Ur Amphetamine Screen Negative (Negative) U Benzodiazepines Scrn Positive A (Negative) Urine Cocaine Screen Negative (Negative) U Cannabinoids Screen Positive A (Negative) Ethyl Alcohol < 10 (<10) mg/dL Influenza A (RT-PCR) Negative (Negative) Influenza B (RT-PCR) Negative (Negative) RSV (RT-PCR) Negative (Negative) SARS-CoV-2 RNA (RT-PCR) Negative (Negative) 01/16/25 Range/Units 18:58 WBC (4.5-10.0) K/mm3 RBC (4.2-5.4) M/mm3 Hgb (12.0-15.0) g/dL Hct (37.0-47.0) % MCV (80-100) fl MCH (26-34) pg MCHC (32-36) g/dl RDW (11.5-14.5) % Plt Count (150-375) k/mm3 MPV (7.4-10.4) fl Immature Gran % (Auto) (0-0.5) % Neut % (Auto) (45.5-73.1) % Lymph % (Auto) (18.3-44.2) % [place] % (Auto) (2.6-8.5) % Eos % (Auto) (0-4.4) % Baso % (Auto) (0.2-1.2) % Lymph # (Auto) (0.9-3.2) K/mm3 [place] # (Auto) (0.1-0.6) K/mm3 Eos # (Auto) (0-0.3) K/mm3 Baso # (Auto) (0.0-0.1) K/mm3 Abs Immat Gran (auto) (0.00-0.031) K/mm3 Absolute Neuts (auto) (1.3-6.7) K/mm3 Absolute Nucleated RBC (0.0-0.012) K/mm3 Nucleated RBC % (0.0-0.2) % Sodium (137-145) mmol/L Potassium (3.4-5.0) mmol/L Chloride (98-107) mmol/L Carbon Dioxide (22-30) mmol/L Anion Gap (4-12) mmol/L BUN (7-17) mg/dL Creatinine (0.7-1.0) mg/dL Estim Creat Clear Calc ml/min Estimated GFR (59 - ) Glucose (65-110) mg/dL Calcium (8.4-10.2) mg/dL Total Bilirubin (0.2-1.3) mg/dL AST (14-36) U/L ALT (6-35) U/L Alkaline Phosphatase (38-126) U/L Total Protein (6.3-8.2) g/dL Albumin (3.5-5.1) g/dL TSH (0.465-4.680) uIU/mL Urine Color (Yellow) Urine Appearance (Clear) Urine pH (5.0-9.0) Ur Specific [place] (1.001-1.035) Urine Protein (Negative) mg/dL Urine Glucose (UA) (Negative) mg/dL Urine Ketones (Negative) mg/dL Ur Blood (Man) (Negative) Urine Nitrate (Negative) Urine Bilirubin (Negative) Urine Urobilinogen (<2.0) mg/dL Leukocyte Esterase Rfl (Negative) JOHNNA/UL Urine RBC (0-2) /hpf Urine WBC (0-3) /hpf Ur Squamous Epith Cells (Few) /hpf Urine Bacteria /hpf Urine Casts POC Urine HCG, Qual Negative (Negative) Salicylates (2-20) mg/dL Urine Opiates Screen (Negative) Urine Methadone Screen (Negative) Acetaminophen (10-30) ug/mL Ur Barbiturates Screen (Negative) Valproic Acid (50-120) ug/mL Ur Phencyclidine Scrn (Negative) Ur Amphetamine Screen (Negative) U Benzodiazepines Scrn (Negative) Urine Cocaine Screen (Negative) U Cannabinoids Screen (Negative) Ethyl Alcohol (<10) mg/dL Influenza A (RT-PCR) (Negative) Influenza B (RT-PCR) (Negative) RSV (RT-PCR) (Negative) SARS-CoV-2 RNA (RT-PCR) (Negative) <Lissett Quintanilla, OCEAN IMPORT REPRESENTATIVE - Last Filed: 01/16/25 16:24> Lab Results 01/16/25 01/16/25 01/16/25 Range/Units 17:26 17:27 18:50 WBC 7.3 (4.5-10.0) K/mm3 RBC 4.15 L (4.2-5.4) M/mm3 Hgb 13.0 (12.0-15.0) g/dL Hct 40.8 (37.0-47.0) % MCV 98.3 (80-100) fl MCH 31.3 (26-34) pg MCHC 31.9 L (32-36) g/dl RDW 14.0 (11.5-14.5) % Plt Count 337 (150-375) k/mm3 MPV 9.0 (7.4-10.4) fl Immature Gran % (Auto) 0.8 H (0-0.5) % Neut % (Auto) 58.2 (45.5-73.1) % Lymph % (Auto) 31.8 (18.3-44.2) % [place] % (Auto) 7.2 (2.6-8.5) % Eos % (Auto) 1.2 (0-4.4) % Baso % (Auto) 0.8 (0.2-1.2) % Lymph # (Auto) 2.33 (0.9-3.2) K/mm3 [place] # (Auto) 0.5 (0.1-0.6) K/mm3 Eos # (Auto) 0.1 (0-0.3) K/mm3 Baso # (Auto) 0.1 (0.0-0.1) K/mm3 Abs Immat Gran (auto) 0.06 H (0.00-0.031) K/mm3 Absolute Neuts (auto) 4.3 (1.3-6.7) K/mm3 Absolute Nucleated RBC 0.000 (0.0-0.012) K/mm3 Nucleated RBC % 0.0 (0.0-0.2) % Sodium 139 (137-145) mmol/L Potassium 4.2 (3.4-5.0) mmol/L Chloride 106 (98-107) mmol/L Carbon Dioxide 26 (22-30) mmol/L Anion Gap 7 (4-12) mmol/L BUN 6 L D (7-17) mg/dL Creatinine 0.66 L (0.7-1.0) mg/dL Estim Creat Clear Calc 117 ml/min Estimated GFR > 60 (59 - ) Glucose 84 (65-110) mg/dL Calcium 8.7 (8.4-10.2) mg/dL Total Bilirubin 0.2 (0.2-1.3) mg/dL AST 25 (14-36) U/L ALT 19 (6-35) U/L Alkaline Phosphatase 73 (38-126) U/L Total Protein 7.0 (6.3-8.2) g/dL Albumin 3.8 (3.5-5.1) g/dL TSH 2.590 (0.465-4.680) uIU/mL Urine Color Yellow (Yellow) Urine Appearance Cloudy H (Clear) Urine pH 7.0 (5.0-9.0) Ur Specific [place] 1.010 (1.001-1.035) Urine Protein Negative (Negative) mg/dL Urine Glucose (UA) Negative (Negative) mg/dL Urine Ketones Negative (Negative) mg/dL Ur Blood (Man) Negative (Negative) Urine Nitrate Negative (Negative) Urine Bilirubin Negative (Negative) Urine Urobilinogen 1.0 (<2.0) mg/dL Leukocyte Esterase Rfl 1+ H (Negative) JOHNNA/UL Urine RBC 0-2 (0-2) /hpf Urine WBC 11-20 H (0-3) /hpf Ur Squamous Epith Cells Moderate (Few) /hpf Urine Bacteria None seen /hpf Urine Casts 0-2 POC Urine HCG, Qual (Negative) Salicylates < 1.0 L (2-20) mg/dL Urine Opiates Screen Negative (Negative) Urine Methadone Screen Negative (Negative) Acetaminophen < 10 L (10-30) ug/mL Ur Barbiturates Screen Negative (Negative) Valproic Acid 57.4 (50-120) ug/mL Ur Phencyclidine Scrn Negative (Negative) Ur Amphetamine Screen Negative (Negative) U Benzodiazepines Scrn Positive A (Negative) Urine Cocaine Screen Negative (Negative) U Cannabinoids Screen Positive A (Negative) Ethyl Alcohol < 10 (<10) mg/dL Influenza A (RT-PCR) Negative (Negative) Influenza B (RT-PCR) Negative (Negative) RSV (RT-PCR) Negative (Negative) SARS-CoV-2 RNA (RT-PCR) Negative (Negative) 01/16/25 Range/Units 18:58 WBC (4.5-10.0) K/mm3 RBC (4.2-5.4) M/mm3 Hgb (12.0-15.0) g/dL Hct (37.0-47.0) % MCV (80-100) fl MCH (26-34) pg MCHC (32-36) g/dl RDW (11.5-14.5) % Plt Count (150-375) k/mm3 MPV (7.4-10.4) fl Immature Gran % (Auto) (0-0.5) % Neut % (Auto) (45.5-73.1) % Lymph % (Auto) (18.3-44.2) % [place] % (Auto) (2.6-8.5) % Eos % (Auto) (0-4.4) % Baso % (Auto) (0.2-1.2) % Lymph # (Auto) (0.9-3.2) K/mm3 [place] # (Auto) (0.1-0.6) K/mm3 Eos # (Auto) (0-0.3) K/mm3 Baso # (Auto) (0.0-0.1) K/mm3 Abs Immat Gran (auto) (0.00-0.031) K/mm3 Absolute Neuts (auto) (1.3-6.7) K/mm3 Absolute Nucleated RBC (0.0-0.012) K/mm3 Nucleated RBC % (0.0-0.2) % Sodium (137-145) mmol/L Potassium (3.4-5.0) mmol/L Chloride (98-107) mmol/L Carbon Dioxide (22-30) mmol/L Anion Gap (4-12) mmol/L BUN (7-17) mg/dL Creatinine (0.7-1.0) mg/dL Estim Creat Clear Calc ml/min Estimated GFR (59 - ) Glucose (65-110) mg/dL Calcium (8.4-10.2) mg/dL Total Bilirubin (0.2-1.3) mg/dL AST (14-36) U/L ALT (6-35) U/L Alkaline Phosphatase (38-126) U/L Total Protein (6.3-8.2) g/dL Albumin (3.5-5.1) g/dL TSH (0.465-4.680) uIU/mL Urine Color (Yellow) Urine Appearance (Clear) Urine pH (5.0-9.0) Ur Specific [place] (1.001-1.035) Urine Protein (Negative) mg/dL Urine Glucose (UA) (Negative) mg/dL Urine Ketones (Negative) mg/dL Ur Blood (Man) (Negative) Urine Nitrate (Negative) Urine Bilirubin (Negative) Urine Urobilinogen (<2.0) mg/dL Leukocyte Esterase Rfl (Negative) JOHNNA/UL Urine RBC (0-2) /hpf Urine WBC (0-3) /hpf Ur Squamous Epith Cells (Few) /hpf Urine Bacteria /hpf Urine Casts POC Urine HCG, Qual Negative (Negative) Salicylates (2-20) mg/dL Urine Opiates Screen (Negative) Urine Methadone Screen (Negative) Acetaminophen (10-30) ug/mL Ur Barbiturates Screen (Negative) Valproic Acid (50-120) ug/mL Ur Phencyclidine Scrn (Negative) Ur Amphetamine Screen (Negative) U Benzodiazepines Scrn (Negative) Urine Cocaine Screen (Negative) U Cannabinoids Screen (Negative) Ethyl Alcohol (<10) mg/dL Influenza A (RT-PCR) (Negative) Influenza B (RT-PCR) (Negative) RSV (RT-PCR) (Negative) SARS-CoV-2 RNA (RT-PCR) (Negative) <Miroslava Shepherd PA-C - Last Filed: 01/16/25 22:00> Discharge Plan Discharge Clinical Impression: Anxiety Depression Qualifiers: Depression Type: unspecified Qualified Code(s): F32.A - Depression, unspecified UTI (urinary tract infection) Qualifiers: Urinary tract infection type: acute cystitis Hematuria presence: without hematuria Qualified Code(s): N30.00 - Acute cystitis without hematuria <Lissett Quintanilla APRN - Last Filed: 01/16/25 16:24> Patient Disposition: Home <Lissett Quintanilla APRN - Last Filed: 01/16/25 16:24> Condition: Stable <Lissett Quintanilla APRN - Last Filed: 01/16/25 16:24> Instructions: Antibiotic Form, Urinary Tract Infection in Women (DC), Depression (ED), Anxiety (ED) <Lissett Quintanilla APRN - Last Filed: 01/16/25 16:24> Additional Instructions: Your evaluated in the emergency department for suicidal thoughts. Your medical workup showed findings concerning for UTI in your started on cephalexin for this. Your evaluated by the psychiatric team and felt appropriate for outpatient follow-up. Please continue taking her medications and follow-up closely with her psychiatrist and counselor. Your also requesting a medication for anxiety. I prescribed you hydroxyzine to take as needed for anxiety and panic attacks. Return to the emergency department if you develop worsening suicidal thoughts, plan to harm herself, thoughts or plan to harm other people, or other concerning symptoms. <Lissett Quintanilla APRN - Last Filed: 01/16/25 16:24> Patient Language: Palestinian <Lissett Quintanilla APRN - Last Filed: 01/16/25 16:24> Prescriptions: New hydroxyzine HCl 25 mg tablet 25 mg PO QID PRN (Reason: anxiety) Qty: 14 0RF cephalexin 500 mg capsule 500 mg PO Q6H Qty: 28 0RF No Action hydroxyzine HCl 25 mg tablet 25 mg PO TID PRN (Reason: anxiety) fluoxetine 20 mg capsule 40 mg PO DAILY levothyroxine 25 mcg Tablet 25 mcg PO DAILY@0630 Qty: 60 0RF norethindrone (contraceptive) [Ortho Micronor] 0.35 mg tablet 0.35 mg PO DAILY Qty: 84 0RF divalproex [Depakote] 500 mg tablet,delayed release (DR/EC) 1,000 mg PO HS trazodone 150 mg tablet 150 mg PO HS PRN (Reason: insomnia) buspirone 10 mg Tablet 30 mg PO BID <Lissett Quintanilla APRN - Last Filed: 01/16/25 16:24> Follow-up/Referrals: Eda Bird MD [Primary Care Provider] - <Lissett Quintanilla APRN - Last Filed: 01/16/25 16:24>
[2025-01-16 17:34] LABS: Basophils Absolute Auto 0.1 K/mm3 (0.0-0.1); Basophils Percent Auto 0.8 % (0.2-1.2); Eosinophils Absolute Auto 0.1 K/mm3 (0-0.3); Eosinophils Percent Auto 1.2 % (0-4.4); Hematocrit 40.8 % (37.0-47.0); Immature Granulocyte Absolute 0.06 K/mm3 (0.00-0.031); Immature Granulocyte Percent A 0.8 % (0-0.5); Lymphocytes Absolute Auto 2.33 K/mm3 (0.9-3.2); Lymphocytes Percent Auto 31.8 % (18.3-44.2); Mean Corpuscular HGB Conc 31.9 g/dl (32-36); Mean Corpuscular Hemoglobin 31.3 pg (26-34); Mean Corpuscular Volume 98.3 fl (80-100); Monocytes Absolute Auto 0.5 K/mm3 (0.1-0.6); Monocytes Percent Auto 7.2 % (2.6-8.5); Neutrophils Absolute Auto 4.3 K/mm3 (1.3-6.7); Neutrophils Percent Auto 58.2 % (45.5-73.1); Platelet Count Result 337 k/mm3 (150-375); Red Blood Count 4.15 M/mm3 (4.2-5.4); White Blood Count 7.3 K/mm3 (4.5-10.0)
[2025-01-16 17:52] LABS: Alanine Aminotransferase 19 U/L (6-35); Albumin Level 3.8 g/dL (3.5-5.1); Alkaline Phosphatase 73 U/L (38-126); Anion Gap 7 mmol/L (4-12); Aspartate Amino Transferase 25 U/L (14-36); Bilirubin,Total 0.2 mg/dL (0.2-1.3); Blood Urea Nitrogen 6 mg/dL (7-17); Calcium 8.7 mg/dL (8.4-10.2); Carbon Dioxide 26 mmol/L (22-30); Chloride 106 mmol/L (98-107); Estimated CRCL calculation 117 ml/min; Estimated Glomerular Filt Rate > 60; Glucose 84 mg/dL (65-110); Potassium 4.2 mmol/L (3.4-5.0); Sodium 139 mmol/L (137-145)
[2025-01-16 17:53] LABS: Acetaminophen < 10 ug/mL (10-30); Ethanol < 10 mg/dL (<10); Salicylate < 1.0 mg/dL (2-20)
--- NOTE | 2025-01-16 17:54 | PC.NURSE ---
no sitter required due to low columbia score risk
[2025-01-16 18:09] LABS: Influenza A QL RT-PCR Negative (Negative); Influenza B QL RT-PCR Negative (Negative); RSV RNA, RT-PCR Negative (Negative); SARS-CoV-2 RNA PCR Negative (Negative)
[2025-01-16 18:12] LABS: Valproic Acid 57.4 ug/mL (50-120)
[2025-01-16 18:59] LABS: BEDSIDEPREGUCG Negative (Negative)
[2025-01-16 18:59] LABS: Add Urine Microscopic? YES; Appearance Urine Cloudy (Clear); Bacteria Urine None Seen /hpf; Bilirubin Urine Negative (Negative); Blood Urine Negative (Negative); Color Urine Yellow (Yellow); Glucose Urine UA Negative (Negative); Ketones Urine Negative (Negative); Leukocyte Esterase Ur 1+ LEU/UL (Negative); Nitrate Urine Negative (Negative); Non Pathogenic Casts 0-2; Protein Urine Negative (Negative); RBC Urine 0-2 /hpf (0-2); Squamous Epithelial Cell Urine Moderate /hpf (Few)
[2025-01-16] MEDS: CEPHALEXIN 500 MG CAPSULE PO (19:12)
[2025-01-16 19:20] LABS: Amphetamine Screen Urine Negative (Negative); Barbiturate Screen Urine Negative (Negative); Benzodiazepines Screen Urine Positive (Negative); Cannabinoid Screen Urine Positive (Negative); Cocaine Screen Urine Negative (Negative); Methadone Screen Urine Negative (Negative); Opiate Screen Urine Negative (Negative); Phencyclidine Screen Urine Negative (Negative)
[2025-01-16] MEDS: hydrOXYzine HCL 25 MG TABLET PO (22:11)
--- OUTSIDE RECORDS SUMMARY | 2025-01-17 14:55 | XMS_ITS | Referral Summary ---
Author Organization [facility] Healthcare [facility] Care Team Providers Care Ip Litigation Associate Name Role Phone Naresh Camacho MD Primary Care Provider [phone] No, Physician Unavailable Effie Adame NP Unavailable [phone] Encounters Date Type Department Care Team Description 11/08/2024 12:45 PM PIN FEATHER MACHINE OPERATOR Office Visit [facility] Medical Group [facility] at [address] [place] [address] Misa Collazo, HARSHA Nasal congestion (Primary Dx); Acute maxillary sinusitis, recurrence not specified from Last 3 Months Allergies Active Allergy Reactions Criticality Noted Date Comments Amoxicillin Vomiting,Nausea & Vomiting Low 06/30/20 20 NAUSEA/VOMITTING Medications ergocalciferol (VITAMIN D) 50,000 unit capsule 06/27/20 20 Active FLUoxetine (PROzac) 20 mg capsule Take 60 mg by mouth daily 05/31/20 20 Active busPIRone (BUSPAR) 10 mg tablet Take 10 mg by mouth 3 (three) times a day 11/04/19 21 Active NIFEdipine (NIFEdipine XL) 30 mg 24 hr tablet Take 1 tablet (30 mg total) by mouth daily 30 tablet 06/11/20 22 Active ondansetron ODT (ZOFRAN-ODT) 4 mg disintegrating tablet Dissolve 1 tablet for mild to moderate nausea or vomiting or 2 tablets for severe nausea or vomiting oral twice a day as needed. 15 tablet 06/14/20 Active Additional Information Patient not taking.Reported on 11/08/2024 nitrofurantoin monohydrate (MACROBID) 100 mg capsuleIndications :Urinary Tract/Genitourinar y Infection Take 1 capsule (100 mg total) by mouth 2 (two) times a day 14 capsule 06/30/20 Active Additional Information Patient not taking.Reported on 11/08/2024 levothyroxine (SYNTHROID) 25 mcg tablet Take 1 tablet (25 mcg total) by mouth organizational development specialist before breakfast Active Active Problems Problem Noted Date Diagnosed Date Acute metabolic encephalopathy 03/29/2023 Intentional drug overdose, initial encounter 08/2023 Bipolar 1 disorder, depressed 06/30/2022 psychosis 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 However low-dose of levothyroxine, can be given as long as TSH is not suppressed. Occasionally, Morgan's can cause thyrotoxicosis and the treatment would be with thionamides to normalize a suppressed TSH Improvement of the symptoms e.g. tiredness and fatigue is not always achieved with normalization of the TSH Anti-inflammatory e.g. NSAIDs and / or steroids are used for short period of time, when there are local symptoms e.g. tenderness in the thyroid area, dysphagia or changes to voice I have requested a repeat TSH, free T4 and free T3. Recommendations to follow according with the results of the test and the considerations to mentioned above Social History Tobacco Use Types Packs/Day Years Used Date Smoking Tobacco: Never Smokeless Tobacco: Never Tobacco Cessation:Counseling Given: Not Answered Alcohol Use Standard Drinks/Week Comments Yes 0 (1 standard drink = 0.6 oz pur e alcohol) occasional Social Connection and Isolation Panel [NHANES] A nswer Date Recorded In a typical week, how many times do you talk on the phone with family, friends, or neighbors? Three times a week 03/29/20 How often do you get togethe r with friends or relatives? Twice a week 03/29/2023 How often do you attend chur ch or church services? Never 03/29/2023 Do you belong to any clubs o r organizations such as jain groups, unions, fraternal or athletic groups, or school groups? No 03/29/2023 How often do you attend meet ings of the clubs or organizations you belong to? Never 03/29/2023 Are you , , di vorced, , never , or living with a partner? Living with partner 03/29/2023 Overall Financial Resource Strain (CARDIA) Answe r Date Recorded How hard is it for you to pa y for the very basics like food, housing, medical care, and heating? Not very hard 03/29/2023 PHQ-2 Answer Date Recorded PHQ-2 Total Score (If total score is 3 or more points, staff should administer the PHQ-9) 0 11/30/2020 Hunger Vital Sign Answer Date Recorded Within the past 12 months, y ou worried that your food would run out before you got the money to buy more. Never true 03/29/20 23 Within the past 12 months, t he food you bought just didn't last and you didn't have money to get more. Never true 03/29/2023 PRAPARE - Transportation Answer Date Re corded In the past 12 months, has l ack of transportation kept you from medical appointments or from getting medications? No 03/17 In the past 12 months, has l ack of transportation kept you from meetings, work, or from getting things needed for daily living? No 03/29/2023 Housing Stability Vital Sign Answer Abhilash e Recorded In the last 12 months, was t here a time when you were not able to pay the mortgage or rent on time? No 03/29/2023 In the last 12 months, how many places have you lived? 1 03/29/2023 In the last 12 months, was t here a time when you did not have a steady place to sleep or slept in a usp (including now)? No 03/29/2023 [place] Depression Scale Answer Date Recorded [place] Depression Scale Total 28 06/22/2022 The thought of harming myself has occurred to me . Often 06/22/2022 Comments Unknown Sex and Gender Information Value Date Recorded Sex Assigned at Not on file Legal Sex Female 10:25 AM PIN FEATHER MACHINE OPERATOR Gender Identity Not on file Sexual Orientation Not on file Last Filed Vital Signs Vital Sign Reading Time Taken Comments Blood Pressure 110/78 11/08/2024 12:59 PM PIN FEATHER MACHINE OPERATOR Pulse 96 11/08/2024 12:59 PM PIN FEATHER MACHINE OPERATOR Temperature 36.7 C (98 F) 11/08/2024 12:59 PM PIN FEATHER MACHINE OPERATOR Respiratory Rate 18 03/31/2023 8:47 PM CDT Oxygen Saturation 98% 11/08/2024 12:59 PM PIN FEATHER MACHINE OPERATOR Inhaled Oxygen Concentration - - Weight 92.5 kg (204 lb) 11/08/2024 12:59 PM PIN FEATHER MACHINE OPERATOR Height 167.6 cm (5' 6 ) 11/08/2024 12:59 PM PIN FEATHER MACHINE OPERATOR Body Mass Index 32.93 11/08/2024 12:59 PM PIN FEATHER MACHINE OPERATOR Plan of Treatment Not on file Procedures Procedure Name Priority Date/Time Associated Diagnosis Comments POC INFLUENZA A/B, COVID-19 ANTIGEN Routine 11/08/2024 12:55 PM PIN FEATHER MACHINE OPERATOR Nasal congestion from Last 3 Months Results * POC Influenza A/B, COVID-19 antigen (11/08/2024 12:55 PM PIN FEATHER MACHINE OPERATOR) Influenza A Ag, POC Negative Negative [facility] Influenza B Ag, POC Negative Negative [facility] COVID-19 Ag POC Presumptive Negative Presumptive Negative, Invalid [facility] Nasal 11/08/2024 12:5 5 PM PIN FEATHER MACHINE OPERATOR us Misa Collazo ADMINISTRATIVE LAW JUDGE POINT OF CARE TEST ORDERABLE S Final Result [facility] [address] [facility] [address] [place] [address], [facility] from Last 3 Months Insurance [facility] Advance Directives For more information, please contact: [phone] * Full Code (Latest Code Status on File) Date Activated Date Inactivated Comments 03/29/2023 12:11 AM 04/01/2023 6:55 AM Care Teams Ip Litigation Associate Relationship Specialty Start Date End Date Naresh Camacho MD [address] [place] [address] PCP - General 03/17/19 No, Physician 03/17/19 Effie Adame NP Nurse Practitioner Family Medicine 06/29/20
--- OUTSIDE RECORDS SUMMARY | 2025-01-17 14:55 | XMS_ITS | Clinical Summary ---
Author Organization [facility] Healthcare [facility] Care Team Providers Care Retail Worker Name Role Phone Naresh Camacho MD Primary Care Provider [phone] No, Physician Unavailable Effie Adame NP Unavailable [phone] Allergies Active Allergy Reactions Criticality Noted Date [...] a day as needed. 15 tablet 06/14/20 22 Active Additional Information Patient not taking.Reported on 11/08/2024 nitrofurantoin monohydrate (MACROBID) 100 mg capsuleIndications :Urinary Tract/Genitourinar y Infection Take 1 capsule (100 mg total) by mouth 2 (two) times a day 14 capsule 06/30/20 Active Additional Information Patient not taking.Reported on 11/08/2024 levothyroxine (SYNTHROID) 25 mcg tablet Take 1 tablet (25 mcg total) by mouth compliance analyst before breakfast Active Active Problems Problem Noted [...] test and the considerations to mentioned above Encounters Date Type Department Care Team Description 11/08/2024 12:45 PM CODING COMPLIANCE SPECIALIST Office Visit [facility] Medical Group [facility] at [address] [place] [address] Misa Collazo, HARSHA Nasal congestion (Primary Dx); Acute maxillary sinusitis, recurrence not specified from Last 3 Months Surgical History Surgery Date Site/Laterality Comments HAND SURGERY TONSILLECTOMY Medical History Medical History Date Comments Anxiety Depression Family History Medical History Relation Name Comments Cancer Father Crohn's disease Mother Thyroid disease Mother Morgan's thyroiditis Sister Relation Name Status Comments Father Mother Sister Social History Tobacco Use Types Packs/Day Years [...] often do you attend chur ch or episcopalian services? Never 03/29/2023 Do you belong to any clubs o r organizations such as advent groups, unions, fraternal or athletic groups, or [...] place to sleep or slept in a halfway (including now)? No 03/29/2023 [place] Depression Scale Answer Date Recorded [place] Depression Scale Total 28 06/22/2022 The thought of harming myself has occurred to me . Often 06/22/2022 Comments Unknown Sex and Gender Information Value Date Recorded Sex Assigned at Not on file Legal Sex Female 10:25 AM CODING COMPLIANCE SPECIALIST Gender Identity Not on file Sexual Orientation Not on file Obstetrics History Para Term AB IAB SAB Ectopic Multiple Livin g Live Births 1 Date Outcome GA Total Labor Labor/2nd/3rd Weight Sex Type Anes PTL Britney A1 A5 Name Clin Last Filed Vital Signs Vital Sign Reading Time Taken Comments Blood Pressure 110/78 11/08/2024 12:59 PM CODING COMPLIANCE SPECIALIST Pulse 96 11/08/2024 12:59 PM CODING COMPLIANCE SPECIALIST Temperature 36.7 C (98 F) 11/08/2024 12:59 PM CODING COMPLIANCE SPECIALIST Respiratory Rate 18 03/31/2023 8:47 PM CDT Oxygen Saturation 98% 11/08/2024 12:59 PM CODING COMPLIANCE SPECIALIST Inhaled Oxygen Concentration - - Weight 92.5 kg (204 lb) 11/08/2024 12:59 PM CODING COMPLIANCE SPECIALIST Height 167.6 cm (5' 6 ) 11/08/2024 12:59 PM CODING COMPLIANCE SPECIALIST Body Mass Index 32.93 11/08/2024 12:59 PM CODING COMPLIANCE SPECIALIST Plan of Treatment Health Maintenance Due Date Last Done Comments Cervical Cancer Screening 1989 Hepatitis C Screening 1989 DTaP/Tdap/Td Vaccine (1 - Tdap) 2000 Varicella Vaccines (1 of 2 - 13+ 2-dose series) 2002 Hepatitis B Screening 12/21/2007 Regular Well Visit/Exam 18-64 12/21/2007 Depression Screening 06/22/2023 06/22/2022, 11/30/2020, 07/15/2020 Covid-19 Vaccine (2023-2 5 season) 2024 06/20/2022, 12/31/2020, 12/10/2020 Influenza Vaccine (Season Ended) 2025 HPV Vaccines Aged Out No longer eligi ble based on patient's age to complete this topic Pneumococcal vaccine <65 Aged Out No longer eligible based on patient's age to complete this topic Procedures Procedure Name Priority Date/Time Associated Diagnosis Comments POC INFLUENZA A/B, COVID-19 ANTIGEN Routine 11/08/2024 12:55 PM CODING COMPLIANCE SPECIALIST Nasal congestion from Last 3 Months Results * POC Influenza A/B, COVID-19 antigen (11/08/2024 12:55 PM CODING COMPLIANCE SPECIALIST) Influenza A Ag, POC Negative Negative [facility] Influenza B Ag, POC Negative Negative [facility] COVID-19 Ag POC Presumptive Negative Presumptive Negative, Invalid [facility] Nasal 11/08/2024 12:5 5 PM CODING COMPLIANCE SPECIALIST us Misa Collazo NP POINT OF CARE TEST ORDERABLE S Final Result [facility] [address] [place] [id number], [facility] from Last 3 Months Insurance [facility] BLUE ACCESS CHOICE IN Advance Directives For more information, please contact: [phone] * Full Code (Latest Code Status on File) Date Activated Date Inactivated Comments 03/29/2023 12:11 AM 04/01/2023 6:55 AM Care Teams Retail Worker Relationship Specialty Start Date End Date Naresh Camacho MD [address] [place] [address] PCP - General 03/17/19 No, Physician 03/17/19 Effie Adame NP Nurse Practitioner Family Medicine 06/29/20
--- OUTSIDE RECORDS SUMMARY | 2025-01-17 14:55 | XMS_ITS | Clinical Summary ---
Author Organization [facility] Address [address] [place] [address] Care Team Providers Care Fee Clerk Name Role Phone Misa Palacios PA-C Primary Care Provider [phone] Allergies Active Allergy Reactions Criticality Noted Date Comments Amoxicillin Unknown 01/29/2024 Medications ARIPiprazole (ABILIFY) 2 MG tablet Take 1 tablet (2 mg total) by mouth daily. Active levothyroxine (SYNTHROID) 300 MCG tablet Take 1 tablet (300 mcg total) by mouth every morning. Active busPIRone (BUSPAR) 7.5 MG tablet Take 1 tablet (7.5 mg total) by mouth 2 (two) times daily. Active divalproex EC (DEPAKOTE) 125 MG tablet Take 1 tablet (125 mg total) by mouth 3 (three) times daily. Active hydrOXYzine (ATARAX) 50 MG tablet Take 1 tablet (50 mg total) by mouth 3 (three) times daily as needed for Itching. Active traZODone (DESYREL) 150 MG tablet Take 1 tablet (150 mg total) by mouth nightly at bedtime. Active norethindrone-e thinyl estradiol (FEMHRT 1/5) 1-5 MG-MCG tablet Take 1 tablet by mouth daily. Active Social History Tobacco Use Types Packs/Day Years Used Date Smoking Tobacco: Never Smokeless Tobacco: Never Tobacco Cessation:Counseling Given: Not Answered Alcohol Use Standard Drinks/Week Comments Not Currently 0 (1 standard drink = 0.6 oz pur e alcohol) Comments No Sex and Gender Information Value Date Recorded Sex Assigned at Not on file Legal Sex Female 6:02 PM CDT Gender Identity Not on file Sexual Orientation Not on file Last Filed Vital Signs Vital Sign Reading Time Taken Comments Blood Pressure 98/70 02/14/2024 10:55 AM CDT Pulse 74 02/14/2024 10:23 AM CDT Temperature 36.4 C (97.5 F) 02/14/2024 10:23 AM CDT Respiratory Rate 25 02/14/2024 10:23 AM CDT Oxygen Saturation 97% 02/14/2024 10:55 AM CDT Inhaled Oxygen Concentration - - Weight 79.4 kg (175 lb) 02/05/2024 11:12 AM CDT Height 167.6 cm (5' 6 ) 02/05/2024 11:12 AM CDT Body Mass Index 28.25 02/05/2024 11:12 AM CDT Plan of Treatment Health Maintenance Due Date Last Done Comments Cervical Cancer Screening Pa p Smear (Age 30 to 64) Every 3 Years 1989 Annual Physical 1992 Hepatitis C 12/21/2007 DTaP, Tdap and Td Vaccines ( 1 - Tdap) 2008 Hepatitis B Vaccines (1 of 3 - 19+ 3-dose series) 2008 Cervical Cancer Screening Pa p with HPV Testing (Age 30 to 64) Every 5 Years 12/21/2019 Cervical Cancer Screening with HPV 12/21/2019 COVID-19 Vaccine (2023-2 5 season) 2024 HPV Vaccines Aged Out No longer eligi ble based on patient's age to complete this topic Meningococcal B Vaccine Aged Out No l onger eligible based on patient's age to complete this topic Meningococcal Vaccine Aged Out No nigel yanci eligible based on patient's age to complete this topic Pneumococcal Vaccine: Pediat rics (0 to 5 Years) and At-Risk Patients (6 to 49 Years) Aged Out No longer eligible b ased on patient's age to complete this topic RSV Immunizations Under 20 Months Aged Out No longer eligible based on patient's age to complete this topic [place] [address] [place] [address] Care Teams Fee Clerk Relationship Specialty Start Date End Date Misa Palacios PA-C [address] [place] [address] PCP - General PHYSICIAN CONTROL CLERK AUDITING 01/29/24
== END 2025-01-16 22:23 | disposition home or self-care (01) ==
PROVIDERS: Registered Nurse; Emergency Provider Physician Assistant; PCP Family Medicine
DX: F32.A Depression, unspecified (principal); F41.9 Anxiety disorder, unspecified; N30.00 Acute cystitis without hematuria; Z11.52 Encounter for screening for COVID-19; E03.9 Hypothyroidism, unspecified; E61.1 Iron deficiency; Z79.899 Other long term (current) drug therapy
CPT/HCPCS: 36415; 80053; 80143; 80164; 80179; 80307; 81001; 81025; 82077; 84443; 85025; 87637; 93005; 99284; A9270